=== PATIENT | female | born 1980 | race Caucasian/White ===

== ENCOUNTER 2017-07-15 09:36 | Emergency (ER) | payer BC, OTHER ==
[2017-07-15 09:55] VITALS: BP 147/77
--- NOTE | 2017-07-15 10:08 | UC ---
Skin Complaint HPI - HPI Summary HPI Summary: rash right lower back x 1 day the rash is painful, red, wraps around to the abd no fever, no chills - History of Current Complaint Chief Complaint: UCSkin Time Seen by Provider: 07/15/17 09:43 Stated Complaint: SKIN COMPLAINT Hx Last Menstrual Period: 07/12/17 Onset/Duration: Gradual Onset, Lasting Days - 1, Still Present Timing: Constant Onset Severity: Moderate Current Severity: Severe Location: Other - right lower back extends to right lowe abd Character: Swelling, Pain, Redness Aggravating Factor(s): Touch Alleviating Factor(s): Nothing Associated Signs & Symptoms: Positive: Tenderness. Negative: Nausea, Vomiting, Numbness, Thirst, Diaphoresis, Weakness, Pallor, Shivering - Allergy/Home Medications Allergies/Adverse Reactions: Allergies Allergy/AdvReac Type Severity Reaction Status Date / Time Latex Allergy Anaphylatic Verified 07/15/17 09:48 Shock Home Medications: Home Medications Acetaminophen [Acetaminophen Extra Stren] 1,000 mg PO Q6H PRN 07/15/17 [History Confirmed 07/15/17] Gabapentin CAP(*) [Neurontin 300 CAP(*)] 300 mg PO TID 07/15/17 [History Confirmed 07/15/17] Spironolactone TAB* [Aldactone TAB*] 25 mg PO QAM 07/15/17 [History Confirmed ] Review of Systems Constitutional: Negative Skin: Rash Eyes: Negative ENT: Negative Respiratory: Negative Cardiovascular: Negative Is Patient Immunocompromised?: No All Other Systems Reviewed And Are Negative: Yes PMH/Surg Hx/FS Hx/Imm Hx - Additional Past Medical History Additional PMH: chronic back pain Previously Healthy: Yes Respiratory History: Pneumonia Neurological History: Migraine - Surgical History Surgical History: Yes Surgery Procedure, Year, and Place: L5S1 Microdiscectomy, 2009, [facility]; Bilateral [place]ik, 2006, [facility] [place]; Right ACL, 2004, [facility] [place]; - Family History Known Family History: Negative: Diabetes - Social History Alcohol Use: Occasionally Substance Use Type: None Smoking Status (MU): Never Smoked Tobacco - Immunization History Most Recent Influenza Vaccination: February 2014 Physical Exam Triage Information Reviewed: Yes Appearance: Pain Distress, Obese Vital Signs: Initial Vital Signs Temp 99.3 F 07/15/17 09:47 Pulse 104 07/15/17 09:47 Resp 18 07/15/17 09:47 BP 147/77 07/15/17 09:47 Pulse Ox 99 07/15/17 09:47 Vital Signs Reviewed: Yes Eye Exam: Normal Eyes: Positive: Conjunctiva Clear ENT: Positive: Normal ENT inspection, Hearing grossly normal, Pharynx normal Neck exam: Normal Neck: Positive: Supple, Nontender, No Lymphadenopathy Respiratory: Positive: Chest non-tender, Lungs clear, Normal breath sounds Cardiovascular: Positive: RRR, No Murmur, Pulses Normal Skin: Positive: rashes - visicular rash located right lowe back to right lower abd dermatomal Course/Dx - Diagnoses Provider Diagnoses: shingles Discharge - Discharge Plan Condition: Stable Disposition: HOME Prescriptions: ValACYclovir (*) [Valtrex 1 GM(*)] 1 gm PO TID #21 tab Patient Education Materials: Medardo (ED) Referrals: Erica Martinez MD [Primary Care Provider] - 7 Days
== END 2017-07-15 10:07 | disposition home or self-care (01) ==
LOC: UCCORT 09:36
DX: B02.9 Zoster without complications (principal); Z91.040 Latex allergy status
CPT/HCPCS: 99202; G0463

== ENCOUNTER 2018-11-10 12:57 | Emergency (ER) | payer OTHER ==
[2018-11-10 13:21] VITALS: BP 132/80
--- NOTE | 2018-11-10 13:38 | UC ---
Hand/Wrist HPI - HPI Summary HPI Summary: right thumb pain x 5 days no known injury , pain is at the base of her right thumb 7 out of 10 , worse with movements and lifting, better with ice and ibuprofen , + swelling, no redness has been doing lots of gardening - History Of Current Complaint Chief Complaint: UCUpperExtremity Stated Complaint: RT HAND PAIN/SWELLING Time Seen by Provider: 11/10/18 13:07 Hx Obtained From: Patient Hx Last Menstrual Period: 07/12/17 Onset/Duration: Gradual Onset, Lasting Days - 5, Still Present Severity Initially: Moderate Severity Currently: Moderate Pain Intensity: 5 Character Of Pain: Aching, Throbbing Aggravating Factor(s): Movement, Lifting Alleviating Factor(s): Rest, Ice Associated Signs And Symptoms: Positive: Swelling, Weakness, Numbness/Tingling. Negative: Redness, Bruising, Fever - Allergies/Home Medications Allergies/Adverse Reactions: Allergies Allergy/AdvReac Type Severity Reaction Status Date / Time latex Allergy Anaphylatic Verified 11/10/18 13:11 Shock Home Medications: Home Medications Escitalopram Oxalate [Lexapro] 20 mg PO DAILY 11/10/18 [History Confirmed ] Estradiol 1 mg PO DAILY 11/10/18 [History Confirmed 11/10/18] Topiramate TAB(*) [Topamax 100 mg tab] 200 mg PO BEDTIME 11/10/18 [History Confirmed 11/10/18] traZODone TAB* [Desyrel TAB*] 50 mg PO BEDTIME 11/10/18 [History Confirmed 11/10] PMH/Surg Hx/FS Hx/Imm Hx - Additional Past Medical History Additional PMH: Back Pain, Migraines, PCOS, Pneumonias Respiratory History: Asthma - Surgical History Surgical History: Yes Surgery Procedure, Year, and Place: L5S1 Microdiscectomy, 2009, [facility]; Bilateral Lasik, 2006, [facility]; Right ACL, 2004, [facility];. hysterectomy 06/2018 - Family History Known Family History: Negative: Diabetes - Social History Alcohol Use: Rare Substance Use Type: None Smoking Status (MU): Never Smoked Tobacco - Immunization History Most Recent Influenza Vaccination: February 2014 Review of Systems All Other Systems Reviewed And Are Negative: Yes Constitutional: Positive: Negative Skin: Positive: Negative Eyes: Positive: Negative ENT: Positive: Negative Is Patient Immunocompromised?: No Physical Exam Triage Information Reviewed: Yes Appearance: Well-Appearing, No Pain Distress, Well-Nourished Vital Signs: Initial Vital Signs Temp 98.2 F 11/10/18 13:16 Pulse 75 11/10/18 13:16 Resp 15 11/10/18 13:16 BP 132/80 11/10/18 13:16 Pulse Ox 100 11/10/18 13:16 Vital Signs Reviewed: Yes Eye Exam: Normal Eyes: Positive: Conjunctiva Clear ENT: Positive: Normal ENT inspection, Hearing grossly normal Neck exam: Normal Neck: Positive: Supple, Nontender, No Lymphadenopathy Respiratory: Positive: Chest non-tender, Lungs clear, Normal breath sounds Cardiovascular: Positive: RRR, No Murmur, Pulses Normal Musculoskeletal Exam: Normal Musculoskeletal: Positive: Other: - right thumb : + swelling proximal thumg , tenderness mcp joit , pain with flexion and extension , + finkelstine Hand/Wrist Course/Dx - Differential Dx/Diagnosis Provider Diagnosis: De Quervain's tenosynovitis, right Discharge - Sign-Out/Discharge Documenting (check all that apply): Patient Departure All imaging exams completed and their final reports reviewed: No Studies - Discharge Plan Condition: Stable Disposition: HOME Patient Education Materials: De Quervain Disease (ED) Referrals: Guero Peters MD [Primary Care Provider] - 2 Weeks - Billing Disposition and Condition Condition: STABLE Disposition: Home
== END 2018-11-10 13:38 | disposition home or self-care (01) ==
LOC: UCCORT 12:57
DX: M65.4 Radial styloid tenosynovitis [de Quervain] (principal); J45.909 Unspecified asthma, uncomplicated; Z91.040 Latex allergy status
CPT/HCPCS: 99211; G0463